=== PATIENT | female | born 1990 | race Caucasian/White ===

== ENCOUNTER 2017-12-05 10:06 | Outpatient (CLI) | payer OTHER | END 2017-12-05 10:07 | disposition home or self-care (01) | LOC: BICULT 10:06 | PROVIDERS: ATTEND Urology | DX: N20.0 Calculus of kidney (principal); Q61.3 Polycystic kidney, unspecified; K76.89 Other specified diseases of liver; Z87.440 Personal history of urinary (tract) infections | CPT/HCPCS: 76770 ==

== ENCOUNTER 2018-05-01 05:52 | Inpatient (IN) | payer OTHER ==
[2018-05-01] MEDS ORDERED: Ondansetron PF 4 MG/2 ML Vial IVP PRN ×3 (05:56→08:42)
[2018-05-01] MEDS ORDERED: Promethazine HCl 25 MG/ML VIAL IM PRN ×2 (05:56→07:59)
[2018-05-01] MEDS ORDERED: Lactated Ringer's 1,000 ML IV SCH ×2 (05:56→08:45)
[2018-05-01] MEDS ORDERED: Docusate 100 MG CAP PO PRN (05:56)
[2018-05-01] MEDS ORDERED: Acetaminophen 500 MG TAB PO PRN (05:56)
[2018-05-01] MEDS ORDERED: CEFAZOLIN/Water 2 GM/20 ML SYRINGE SLOW IVP SCH (05:56)
[2018-05-01] MEDS ORDERED: Bicitra 30 ML UDCUP PO SCH (05:56)
[2018-05-01 06:20] VITALS: BMI 26.2
[2018-05-01] MEDS ORDERED: CEFAZOLIN 2 GM/50 ML BAG ONE (06:49)
[2018-05-01] MEDS ORDERED: Fentanyl 100 MCG/2 ML VIAL ONE (06:56)
[2018-05-01] MEDS ORDERED: Morphine PF 1 MG/ML SYR ONE (06:56)
[2018-05-01] MEDS ORDERED: ePHEDrine/0.9% NaCl/PF SYRINGE 50 mg/10 ml ONE (06:57)
[2018-05-01] MEDS ORDERED: Oxytocin 10 UNITS/ML VIAL ONE (06:57)
[2018-05-01] MEDS ORDERED: PHENYLEPHRINE-NS 100 MCG/ML 10 ML SYRINGE ONE (06:57)
[2018-05-01] MEDS ORDERED: Ondansetron PF 4 MG/2 ML Vial ONE (06:57)
[2018-05-01] MEDS ORDERED: Lidocaine 1% (PF) 30 ML VIAL ONE (07:04)
[2018-05-01] MEDS ORDERED: Bupivacaine 0.75% W/DEXTROSE 8.25% 2 ML AMP ONE (07:04)
[2018-05-01] MEDS ORDERED: Lidocaine 2% PF Inj 2 ML VIAL ONE (07:04)
[2018-05-01 07:08] LABS: Hemoglobin 13.1 g/dL (12.0-16.0); Mean Corpuscular Hemoglobin 30.3 pg (27.0-31.0); Mean Corpuscular Volume 89.2 fL (78.0-98.0); Mean Platelet Volume 6.6 fL (7.4-10.4); Platelet Count 207 thou/uL (130-400); RBC Distribution Width 11.9 % (11.5-14.5); Red Blood Cell (RBC) Count 4.32 mill/uL (4.20-5.40)
[2018-05-01 07:46] LABS: HBSAg Index 0.23 S/CO (0-0.99); Syphilis Antibody Nonreactive (Nonreactive); Syphilis Antibody Index 0.05 S/CO (<1.00 Non-Reactive)
[2018-05-01 07:48] LABS: Hep B Surf Ag NonReactive S/CO (NonReactive)
[2018-05-01] MEDS ORDERED: Dexamethasone 4 mg/ml Vial ONE (07:56)
[2018-05-01] MEDS ORDERED: Ketorolac Tromethamine 30 MG/ML VIAL ONE (07:57)
[2018-05-01] MEDS ORDERED: Naloxone HCl 0.4 mg/ml Vial IV PRN (07:59)
[2018-05-01] MEDS ORDERED: Promethazine HCl 25 MG SUPP PR PRN (07:59)
[2018-05-01] MEDS ORDERED: diphenhydrAMINE 50 MG/ML VIAL IVP PRN (07:59)
[2018-05-01] MEDS ORDERED: Meperidine HCl/PF 25 MG/ML VIAL SLOW IVP PRN (07:59)
[2018-05-01] MEDS ORDERED: L&D-Morphine 4 MG/ML VIAL SLOW IVP PRN (07:59)
[2018-05-01] MEDS ORDERED: Naloxone HCl 0.4 mg/ml Vial IVP PRN ×2 (07:59)
[2018-05-01] MEDS ORDERED: Eucerin (Mineral Oil/Petrolatum,White) 30 gm Jar TOP PRN (07:59)
[2018-05-01] MEDS ORDERED: HYDROmorphone 2 MG/ML VIAL SLOW IVP PRN (07:59)
[2018-05-01] MEDS ORDERED: Ondansetron HCl/PF 4 MG/2 ML Vial IVP PRN (07:59)
[2018-05-01] MEDS ORDERED: Ketorolac Tromethamine 30 MG/ML VIAL IVP SCH (08:00)
[2018-05-01] MEDS ORDERED: Communication Order-Pharmacy FS SCH (08:00)
[2018-05-01] MEDS ORDERED: Lanolin Ointment 7 GM TUBE TOP PRN (08:42)
[2018-05-01] MEDS ORDERED: diphenhydrAMINE 25 MG CAP PO PRN (08:42)
[2018-05-01] MEDS ORDERED: Misoprostol 200 MCG TAB PR PRN (08:42)
[2018-05-01] MEDS ORDERED: Bisacodyl 10 MG SUPP PR PRN (08:42)
[2018-05-01] MEDS ORDERED: Adacel (T-DAP) 0.5 ML VIAL IM ONE (08:42)
[2018-05-01] MEDS ORDERED: Acetaminophen 325 MG TAB PO PRN (08:42)
[2018-05-01] MEDS ORDERED: NS / Oxytocin 40 units/1000ml 1,000 ML IV SCH (08:45)
[2018-05-01] MEDS ORDERED: Morphine 4 MG/ML VIAL SLOW IVP PRN (08:46)
[2018-05-01] MEDS ORDERED: Meperidine HCl/PF 25 MG/ML VIAL ONE (10:33)
[2018-05-01] MEDS: Ketorolac Tromethamine 30 MG/ML VIAL IVP SCH ×3 (12:50→20:25)
[2018-05-01] MEDS: Ferrous Sulfate 325 MG TAB PO SCH ×2 (12:50→23:32)
[2018-05-01] MEDS: Prenatal Vitamin 1 TAB PO SCH (12:50)
[2018-05-01] MEDS: Docusate Calcium (SURFAK) 240 MG CAP PO SCH ×2 (12:50→23:32)
[2018-05-01] MEDS: Ibuprofen 800 MG TAB PO SCH ×2 (15:19→23:32)
[2018-05-01] MEDS ORDERED: Zolpidem Tartrate 5 MG TAB PO PRN (20:00)
[2018-05-01] MEDS ORDERED: Meperidine HCl/PF 25 MG/ML VIAL IM PRN (20:00)
[2018-05-01] MEDS ORDERED: Sodium Chloride 0.9% 10 ML ONE (20:24)
[2018-05-02] MEDS ORDERED: Sodium Chloride 0.9% 10 ML ONE (01:57)
[2018-05-02] MEDS: Ketorolac Tromethamine 30 MG/ML VIAL IVP SCH ×2 (02:08→09:51)
[2018-05-02 05:53] LABS: Hemoglobin 11.4 g/dL (12.0-16.0); Mean Corpuscular HGB CONC 32.8 g/dL (32.0-36.0); Mean Corpuscular Hemoglobin 29.9 pg (27.0-31.0); Mean Corpuscular Volume 91.2 fL (78.0-98.0); Mean Platelet Volume 6.5 fL (7.4-10.4); Platelet Count 202 thou/uL (130-400); RBC Distribution Width 11.9 % (11.5-14.5); Red Blood Cell (RBC) Count 3.82 mill/uL (4.20-5.40); White Blood Cell (WBC) Count 13.6 thou/uL (4.8-10.8)
[2018-05-02] MEDS: Ibuprofen 800 MG TAB PO SCH ×3 (07:20→22:00)
[2018-05-02] MEDS: HYDROcodone/Acetaminophen 5/325 mg Tablet PO PRN ×4 (08:51→22:00)
[2018-05-02] MEDS: Docusate Calcium (SURFAK) 240 MG CAP PO SCH ×2 (08:51→22:00)
[2018-05-02] MEDS: Ferrous Sulfate 325 MG TAB PO SCH ×2 (08:54→22:05)
[2018-05-02] MEDS: Simethicone Chewable 80 MG TAB PO PRN ×2 (08:54→23:08)
[2018-05-02] MEDS: Prenatal Vitamin 1 TAB PO SCH (08:55)
[2018-05-03] MEDS: HYDROcodone/Acetaminophen 5/325 mg Tablet PO PRN ×3 (01:57→10:44)
[2018-05-03] MEDS: Ibuprofen 800 MG TAB PO SCH (06:17)
[2018-05-03 07:45] VITALS: BP 113/60; TEMP 97.9
[2018-05-03] MEDS: Prenatal Vitamin 1 TAB PO SCH (09:35)
[2018-05-03] MEDS: Docusate Calcium (SURFAK) 240 MG CAP PO SCH (09:35)
[2018-05-03] MEDS: Ferrous Sulfate 325 MG TAB PO SCH (09:35)
[2018-05-03] MEDS: Simethicone Chewable 80 MG TAB PO PRN (09:35)
--- NOTE | 2018-05-03 10:26 | OP ---
DATE OF PROCEDURE: ATTENDING STAFF PHYSICIAN: Prasad Worley M.D. SURGEONS: 1. Prasad Worley M.D. 2. Maite Varma M.D. ALL TERRAIN VEHICLE [employer]ACER SURGEON: Ladonna Hallman M.D. PREOPERATIVE DIAGNOSES: 1. Term intrauterine at 39 weeks. 2. Prior . 3. Declines trial of labor. POSTOPERATIVE DIAGNOSES: 1. Term intrauterine at 39 weeks. 2. Prior . 3. Declines trial of labor. PROCEDURE: Repeat low transverse section. ANESTHESIA: Spinal catheterization. FINDINGS: 1. A vigorous female , 7 pounds 8 ounces, Apgars 9 and 9. 2. Normal uterus, tubes, and ovaries. COMPLICATIONS: None. SPECIMENS REMOVED: Cord blood. ESTIMATED BLOOD LOSS: Less than 500 (QBL equal 301 mL). DESCRIPTION OF PROCEDURE: After thorough consent and counseling, Ms. Severino was taken to the operatin g room and adequate level of anesthesia was obtained via spinal catheterization. The patient was pre pped and draped in the usual sterile fashion for abdominal surgery. A Coombs was placed in the bladde r, which was drained of clear urine. Attention was then turned to performing the repeat low transver se section. A Pfannenstiel incision was made and the old scar was excised. The incision was carried sharply to t he fascia, which was also sharply incised. The midline was identified and the rectus muscles were re tracted laterally. The abdominal peritoneal cavity was entered with usual safeguards carried out. A retractor was placed and a bladder flap was created on the vesicouterine peritoneum. A bladder blad e was then placed. A low transverse incision was made on the well-developed lower uterine segment. Upon entering the amniotic sac, a copious amount of clear amniotic fluid was visualized. The was noted to be vertex presentation in the occiput anterior position, still high in the pelvis. Head was delivered and baby was bulb suctioned on the abdomen. Shoulders and body were then delivered in an atraumatic fashion. The cord was doubly clamped and cut and the was handed to the pediatr ic team in attendance for the delivery. The was a vigorous viable female weighing 7 pounds 8 ounces with Apgars of 8 and 9 obtained at one and five minutes respectively. Cord blood was obtained . The placenta was manually removed from the uterus. The uterus was exteriorized and good tone was noted. The uterine cavity was cleared of any remaining clot and fluid. The low transverse incision was closed with a running locking ligature of #1 chromic. Multiple cubjgt-ot-evlcv ligatures of #1 c hromic were placed in yhaket-tg-gezly manner for hemostasis. The vesicouterine peritoneum was reappr oximated to the lower segment with a running ligature of 3-0 Monocryl. The uterus, fallopian tubes, and ovaries were inspected and noted to be normal. The posterior cul-de-sac and gutters were cleared of clot and fluid. Seprafilm was applied to the low transverse incision and to the anterior aspect of the uterus for adhesion prevention. The uterus was returned to the abdomen and good tone and hemo stasis was again appreciated. Lap, sponge, and needle counts were correct. The peritoneum was close d with a running ligature of 2-0 Vicryl. The rectus muscles were reapproximated in the midline with interrupted ligatures of 2-0 Vicryl and #1 chromic. The fascia was then closed with 2 ligatures of 0 Vicryl suture, which were tied in the midline. Good fascial integrity was appreciated. The incisio n was irrigated with copious amount of warm normal saline. The subcutaneous tissue was closed with i nterrupted ligatures of 2-0 plain. The skin was closed with a subcuticular stitch of 4-0 Monocryl an d dressed with Dermabond. A pressure dressing and ice packs were subsequently placed. Lap, sponge, and needle counts correct x3. Estimated blood loss during the surgical procedure was less than 500 (QBL 301 mL). The patient was t aken to recovery room in good condition. Immediately following surgery, the patient and family were made aware of the surgical procedure and o perative findings. Questions answered to their satisfaction. #[id number].
== END 2018-05-03 11:15 | disposition home or self-care (01) | DRG 788 ==
LOC: L&D 05:52 → 3SW 12:55
PROVIDERS: ADMIT Obstetrics & Gynecology; ATTEND Obstetrics & Gynecology
PROC: 10D00Z1 Extraction of Products of Conception, Low, Open Approach (ICD-10-PCS; principal; 2018-05-01)
PROC: 4A0HXCZ Measurement of Products of Conception, Cardiac Rate, External Approach (ICD-10-PCS; 2018-05-01)
DX: O34.211 Maternal care for low transverse scar from previous cesarean delivery (principal); Z3A.39 39 weeks gestation of pregnancy; Z37.0 Single live birth
CPT/HCPCS: 36415; 51702; 85027; 86780; 86850; 86900; 86901; 87340; J1100; J1885; J2001; J2175; J2274; J2405; J2590; J3010; J3490

== ENCOUNTER 2020-01-16 12:18 | Outpatient (CLI) | payer BC ==
--- NOTE | 2020-01-16 12:51 | RAD ---
EXAM: Single view of the abdomen HISTORY: Polycystic kidney disease and renal calculi COMPARISON: 11/28/2013 FINDINGS: Single view of the abdomen shows a nonspecific, nonobstructive bowel gas pattern. No suspi cious calcifications are seen. The bones are unremarkable. IMPRESSION: Unremarkable exam
--- NOTE | 2020-01-16 12:53 | ULT ---
US Renal Bilateral STANDARD: 01/16/2020 12:00 AM CLINICAL HISTORY: Chronic kidney disease. STUDY: Renal ultrasound COMPARISON: None. FINDINGS: Right kidney: Echogenicity: Normal. Masses/cysts: Multiple cysts measuring up to 1.6 cm in size Hydronephrosis: None. Calcifications: None. Length: 10.9 cm Left kidney: Echogenicity: Normal. Masses/cysts: Subcentimeter cysts Hydronephrosis: None. Calcifications: None. Length: 10.1 cm Limited visualization of the urinary bladder is unremarkable. IMPRESSION: Bilateral renal cysts
== END 2020-01-16 12:19 | disposition home or self-care (01) ==
LOC: BICULT 12:18
PROVIDERS: ATTEND Urology
DX: N20.0 Calculus of kidney (principal); Q61.3 Polycystic kidney, unspecified
CPT/HCPCS: 36415; 74018; 76770; 80048; 81001; 87086

== ENCOUNTER 2020-03-02 08:46 | Outpatient (CLI) | payer BC ==
--- NOTE | 2020-03-02 10:03 | MMO ---
Bilateral MAMMO Bilat Diag [facility]DI+COLTEN. CLINICAL HISTORY: Patient is 30 years old and is seen for diagnostic exam. The patient has no family history of breast cancer. The patient has no personal history of cancer. VIEWS: The views performed were: bilateral craniocaudal with tomosynthesis; bilateral mediolateral oblique with tomosynthesis; and bilateral mediolateral with tomosynthesis. FILMS COMPARED: The present examination has been compared to a prior imaging study performed at [facility] on 03/02/2020. This study has been interpreted with the assistance of computer-aided detection. MAMMOGRAM FINDINGS: The breasts are heterogeneously dense, which could obscure a lesion on mammography. Benign calcifications are noted bilaterally. No other mammographic abnormality is seen on either side. US of left breast palpable mass was performed. Please see US report. In the right breast, there are no suspicious masses, calcifications or areas of architectural distortion. IMPRESSION: FINDING IN THE LEFT BREAST REQUIRES ADDITIONAL EVALUATION. AN ULTRASOUND EXAM IS RECOMMENDED. THE RESULTS OF THIS EXAM WERE SENT TO THE PATIENT. ACR BI-RADS Category 0 - Incomplete: Need additional imaging evaluation. [facility] will notify the patient of the need for additional imaging services. MAMMOGRAPHY NOTE: 1. A negative mammogram report should not delay a biopsy if a dominant of clinically suspicious mass is present. 2. Approximately 10% to 15% of breast cancers are not detected by mammography. 3. Adenosis and dense breasts may obscure an underlying neoplasm. Reported by: ZEHRA CAMARILLO MD Electonically Signed: [id number]
--- NOTE | 2020-03-02 11:09 | ULT ---
LEFT BREAST ULTRASOUND: Date: 03/02/2020 HISTORY: 30-year-old female with palpable left breast mass. FINDINGS: Correlation is made to mammogram from same date. Sonographic evaluation of the region of palpable concern at the 1 o'clock position of the left breast , 4.0 cm from the nipple, demonstrates a nonshadowing, well-circumscribed solid mass measuring 8.0 x 5.0 x 9.0 mm. This most likely represents a fibroadenoma. The patient is scheduled to have breast implant surgery and would like to make sure that this mass is not malignant prior to the procedure. IMPRESSION: BI-RADS Category 4 - Suspicious abnormality. Ultrasound-guided biopsy is recommended. If a biopsy is not performed, a follow-up left breast ultrasound should be performed in 6 months. Findings discussed in person with the patient at 0935 hours and over the telephone with Steve hastings NP's [employer]PECT[employer], [place] Retana, at 0958 hours. POS: OFF
== END 2020-03-02 08:47 | disposition home or self-care (01) ==
LOC: BICMAMMO 08:46
PROVIDERS: ATTEND Nurse Practitioner Family
DX: N63.21 Unspecified lump in the left breast, upper outer quadrant (principal); N64.4 Mastodynia
CPT/HCPCS: 77066; G0279

== ENCOUNTER → 2020-03-19 | Day surgery (SDC) | payer BC ==
--- NOTE | 2020-03-19 13:45 | MMO ---
FILMS COMPARED: The present examination has been compared to a prior imaging study performed at [facility] on 03/02/2020. MAMMOGRAM FINDINGS: The breast is heterogeneously dense, which could obscure a lesion on mammography. There is a new biopsy clip seen in the upper-outer region of the left breast. IMPRESSION: NEW BIOPSY CLIP IN THE LEFT BREAST IS CONFIRMED UTILIZING POST PROCEDURE MAMMOGRAM. Reported by: ZEHRA CAMARILLO MD Electonically Signed: [id number]
--- NOTE | 2020-03-19 14:20 | ULT ---
Exam: Ultrasound guided biopsy of the left breast HISTORY: Left breast mass COMPARISON: 03/02/2020 FINDINGS: Successful left breast biopsy with ultrasound guidance. A total of 3, 14-gauge core biopsy samples were obtained and placed directly in formalin. Post biopsy clip was placed. Postprocedure mammogram was obtained. TECHNIQUE: Consent obtained from the left breast biopsy with ultrasound guidance. Left breast was pre pped in a sterile fashion. 1% lidocaine, buffered with sodium bicarbonate was used for local anesthesia, under ultrasound guidance, 3, 14-gauge core biopsy samples were obtained and placed direc tly in formalin. Postbiopsy clip was placed. Patient tolerated procedure well. No immediate or postprocedure complications Post procedure mammogram was performed IMPRESSION: Successful left breast biopsy with ultrasound guidance. Final pathologic diagnosis is pen ding.
== END ==
LOC: BICULT 12:48
PROVIDERS: ATTEND Nurse Practitioner Family
PROC: 0H9U3ZX Drainage of Left Breast, Percutaneous Approach, Diagnostic (ICD-10-PCS; principal; 2020-03-19)
DX: D24.2 Benign neoplasm of left breast (principal)
CPT/HCPCS: 19083; 88305

== ENCOUNTER 2021-03-04 14:06 | Outpatient (CLI) | payer BC | END 2021-03-04 14:07 | disposition home or self-care (01) | LOC: BICULT 14:06 | PROVIDERS: ATTEND Urology | DX: N20.0 Calculus of kidney (principal); Q61.3 Polycystic kidney, unspecified | CPT/HCPCS: 74018; 76770 ==

== ENCOUNTER 2022-10-27 13:07 | Outpatient (CLI) | payer BC ==
[~2022-10-27 13:07] MED LIST: Iopamidol 370 76% 100 ML VIAL ONE
== END 2022-10-27 13:08 | disposition home or self-care (01) ==
LOC: CT 13:07
PROVIDERS: ATTEND Urology
DX: N20.0 Calculus of kidney (principal); N28.1 Cyst of kidney, acquired; K76.89 Other specified diseases of liver
CPT/HCPCS: 74178; Q9967

== ENCOUNTER 2022-11-03 12:57 | Outpatient (CLI) | payer BC ==
[2022-11-03 14:24] LABS: Hemoglobin 13.3 g/dL (12.0-15.5); Mean Corpuscular HGB CONC 33.7 g/dL (32.0-36.0); Mean Corpuscular Hemoglobin 28.5 pg (27.0-33.0); Mean Corpuscular Volume 84.8 fl (81.6-98.3); Mean Platelet Volume 9.4 fl (7.4-10.4); Platelet Count 250 10x3/uL (150-450); Red Blood Cell (RBC) Count 4.66 10x6/uL (3.90-5.03); White Blood Cell (WBC) Count 4.7 10x3/uL (3.5-10.5)
[2022-11-03 14:40] LABS: BHCG - Serum Negative (NEGATIVE); Pregs Control Background? CLEAR/WHITE (CLR/WHITE); Pregs Control Bar Appear? YES (CONTROL BAR)
[2022-11-03 14:41] LABS: PTT 29.6 sec (22.0-33.0); Prothrombin Time 10.4 sec (9.5-12.1)
[2022-11-03 14:43] LABS: Anion Gap 14 mmol/L (10-20); BUN (Urea Nitrogen) 12 mg/dL (7.0-18.7); Calc. Creatinine Clearance 0 mL/min (70-130); Carbon Dioxide 26 mmol/L (22-29); Chloride 106 mmol/L (98-107); Estimated GFR 104; Sodium 142 mmol/L (136-145)
[2022-11-03 14:44] LABS: Calcium 9.4 mg/dL (7.8-10.44); Glucose 120 mg/dL (70-105)
== END 2022-11-03 12:58 | disposition home or self-care (01) ==
LOC: LABBT 12:57
PROVIDERS: ATTEND Urology
DX: Z01.812 Encounter for preprocedural laboratory examination (principal); Q61.3 Polycystic kidney, unspecified; N20.2 Calculus of kidney with calculus of ureter; R31.29 Other microscopic hematuria
CPT/HCPCS: 80048; 84703; 85027; 85610; 85730

== ENCOUNTER 2023-03-12 13:04 | Outpatient (CLI) | payer BC | END 2023-03-12 13:05 | disposition home or self-care (01) | LOC: RAD 13:04 | PROVIDERS: ATTEND Urology | DX: N20.0 Calculus of kidney (principal) | CPT/HCPCS: 74018 ==